=== PATIENT | male | born 1980 | race Caucasian/White ===

== ENCOUNTER 2019-06-17 16:58 | Emergency (ER) | payer OTHER ==
[~2019-06-17] VITALS: Ht 177.8 cm; Wt 88.2 kg
[2019-06-17] MEDS ORDERED: PROT1TAB2 PO (17:04)
[2019-06-17] MEDS ORDERED: FAMOTIDINE 20 MG TAB PO ONE (17:45)
[2019-06-17] MEDS ORDERED: GI COCKTAIL 50ML BTL(HYOSCYAMINE/MAALOX/LIDOCAINE VISCOUS)(1:3:1) PO ONE (17:45)
[2019-06-17 18:07] LABS: BASO # 0.1 10^3/uL (0.0-0.2); BASO % 0.7 % (0.0-1.0); EOS # 0.1 10^3/uL (0.0-0.5); EOS % 1.3 % (0.0-3.0); HEMATOCRIT 46.3 % (42.0-52.0); HEMOGLOBIN 15.6 g/dl (13.5-17.5); LYMPH % 23.1 % (24.0-44.0); MEAN CORPUSCULAR HEMOGLOBIN 29.8 pg (27.0-33.0); MEAN CORPUSCULAR HGB CONC 33.7 g/dl (32.0-36.5); MEAN CORPUSCULAR VOLUME 88.5 fl (80.0-96.0); MONO # 0.8 10^3/uL (0.0-0.8); MONO % 9.1 % (0.0-5.0); NEUTROPHILS # 5.5 10^3/uL (1.5-8.5); NEUTROPHILS % 65.6 % (36.0-66.0); PLATELET COUNT, AUTOMATED 233 10^3/uL (150-450); RED BLOOD COUNT 5.23 10^6/uL (4.30-6.10); WHITE BLOOD COUNT 8.5 10^3/uL (4.0-10.0)
[2019-06-17 18:31] LABS: ALBUMIN 4.5 GM/DL (3.2-5.2); BILIRUBIN,DIRECT 0.1 MG/DL (0.0-0.2); BILIRUBIN,TOTAL 0.3 MG/DL (0.2-1.0); TOTAL PROTEIN 7.6 GM/DL (6.4-8.2)
[2019-06-17] MEDS ORDERED: CARA1TAB6 PO (19:15)
[2019-06-17 19:20] VITALS: BP 133/95
== END 2019-06-17 19:23 | disposition home or self-care (01) ==
LOC: EDBD 16:58 → M ED 16:58
DX: K21.9 Gastro-esophageal reflux disease without esophagitis (principal); Z79.899 Other long term (current) drug therapy

== ENCOUNTER 2019-07-12 11:24 | Day surgery (SDC) | payer OTHER ==
[~2019-07-12] VITALS: Ht 177.8 cm; Wt 84.8 kg
[~2019-07-12 11:24] MED LIST: CARA1TAB6 PO; LIDOCAINE 2% INJ 100 MG/5 ML SDV (FOR ANES.) As Ordered ONE; PEPC1TAB5 PO; PROT1TAB2 PO
[2019-07-12] MEDS ORDERED: propofoL 200 MG/20 ML VIAL As Ordered ONE (11:30)
[2019-07-12] MEDS ORDERED: NS 1,000 ML IV ONE (12:00)
[2019-07-12] MEDS ORDERED: fentaNYL 100 MCG/2 ML INJECTION (J3010) As Ordered ONE (12:31)
--- NOTE | 2019-07-12 13:05 | ROOR ---
Patient Name: Anni Richardson Procedure Date: 07/12/2019 12:46 PM Date of : 1980 Age: 39 Room: [facility] Gender: Male Note Status: Finalized Procedure: Upper GI endoscopy Indications: Epigastric abdominal pain Providers: Michele MORAN MD Referring MD: SABRINA BENNETT MD Requesting Provider: Medicines: Monitored Anesthesia Care Complications: No immediate complications. Procedure: Pre-Anesthesia Assessment: - The heart rate, respiratory rate, oxygen saturations, blood pressure, adequacy of pulmonary ventilation, and response to care were monitored throughout the procedure. The Endoscope was introduced through the mouth, and advanced to the second part of duodenum. The upper GI endoscopy was accomplished without difficulty. The patient tolerated the procedure well. Findings: Non-severe esophagitis was found in the lower third of the esophagus. Biopsies were taken with a cold forceps for histology. The entire examined stomach was normal. The examined duodenum was normal. Impression: - Non-severe reflux esophagitis. Biopsied. - Normal stomach. - Normal examined duodenum. Recommendation: - Follow an antireflux regimen. - Stop pantoprazole, Famotidine. - Start: Use Prilosec (omeprazole) 20 mg PO BID. - (the script was sent to your pharmacy on file) Michele Moran MD Michele MORAN MD 07/12/2019 1:04:42 PM Electronically signed by Michele MORAN MD Number of Addenda: 0 Note Initiated On: 07/12/2019 12:46 PM Estimated Blood Loss: Estimated blood loss: none.
--- NOTE | 2019-07-12 13:19 | ROOR ---
Patient Name: Anni Richardson Procedure Date: 07/12/2019 12:47 PM Date of : 1980 Age: 39 Room: [facility] Gender: Male Note Status: Finalized Procedure: Colonoscopy Indications: Generalized abdominal pain Providers: Michele MORAN MD Referring MD: SABRINA BENNETT MD Requesting Provider: Medicines: Monitored Anesthesia Care Complications: No immediate complications. Procedure: Pre-Anesthesia Assessment: - The heart rate, respiratory rate, oxygen saturations, blood pressure, adequacy of pulmonary ventilation, and response to care were monitored throughout the procedure. The Colonoscope was introduced through the anus and advanced to 10 cm into the ileum. The colonoscopy was performed without difficulty. The patient tolerated the procedure well. The quality of the bowel preparation was good. Findings: The perianal and digital rectal examinations were normal. Internal hemorrhoids were found during retroflexion. The hemorrhoids were medium-sized. The entire examined colon appeared normal. The terminal ileum appeared normal. Impression: - Internal hemorrhoids. - The entire colon is normal. - The examined portion of the ileum was normal. - No specimens collected. Recommendation: - Use Bentyl (dicyclomine) 20 mg PO Q 4-6 hrs as needed for abdominal pain - (the script was sent to your pharmacy on file) Michele Moran MD Michele MORAN MD 07/12/2019 1:19:04 PM Electronically signed by Michele MORAN MD Number of Addenda: 0 Note Initiated On: 07/12/2019 12:47 PM Estimated Blood Loss: Estimated blood loss: none.
[2019-07-12 13:35] VITALS: BP 146/79
== END 2019-07-12 13:48 | disposition home or self-care (01) ==
LOC: M OPP 11:24
PROVIDERS: ATTEND Internal Medicine Gastroenterology
DX: K64.8 Other hemorrhoids (principal); R10.84 Generalized abdominal pain; K21.0 Gastro-esophageal reflux disease with esophagitis; R10.13 Epigastric pain; Z79.899 Other long term (current) drug therapy
CPT/HCPCS: 43239; 45378; 88305; J3010